=== PATIENT | male | born 1980 | race Caucasian/White ===

== ENCOUNTER 2018-01-06 09:38 | Emergency (ER) | payer MEDICAID, SELFPAY ==
[2018-01-06 09:39] VITALS: BP 153/79; PULSE 66; RESP 18; TEMP 36.6; O2SAT 98; BMI 37.3
--- NOTE | 2018-01-06 09:51 | ED.VISSUMM ---
- ER Visit Summary Date of Service: 01/06/18 Chief Complaint: Dental pain History of Present Illness: The patient is a 37 M presents to the emergency department dental pain. Patient states that he has not seen a dentist in over a year. He states over the past 24 hours, his increasing pain in his right upper jaw. He states it hurts to chew. He also admits to hot and cold sensitivity. He denies any fevers or chills. He denies any change in voice. He denies any trouble speaking or swallowing. He states he does have an appointment, but until Wednesday. Physical Examination: Exam is relatively unremarkable. Patient does have widespread dental caries. His submental space is soft. There is no trismus or stridor. He does have significant cavity of tooth 2 and 3 with market tenderness to palpation. There is no definitive abscess. Rest of exam is unremarkable per Test Results: [] Emergency Department Course and Treatment: The patient likely has periapical abscess. He has no trismus or stridor. His oropharynx is widely patent. There is no facial edema. I am going to treat him with penicillin and Naprosyn. He was counseled on concerning symptoms and reasons to return. The patient will be discharged home. Treatment Plan: [] Disposition: Discharge Impression: 1. Dental pain secondary to periapical abscessed tooth 2 This note was generated with [employer] dictation software. It may contain incorrect words, spelling, and punctuation that were not noted in review of the chart prior to signing ED Disposition - Plan for ED Patient: Chief Complaint: Dental Instructions: ED Abscess Dental Prescriptions: Naproxen [Naprosyn] 500 mg PO BID PRN #20 tab Penicillin V Potassium 500 mg PO 4X/DAY #40 tab Referrals: Kirit Reyes MD [Primary Care Provider] -
== END 2018-01-06 10:40 | disposition home or self-care (01) ==
LOC: ED 10:10
PROVIDERS: Emergency Provider Emergency Medicine; Family Provider Family Medicine; PCP Family Medicine
DX: K04.7 Periapical abscess without sinus (principal); Z72.0 Tobacco use
CPT/HCPCS: 99282

== ENCOUNTER 2022-07-29 09:28 | Emergency (ER) | payer MEDICAID, SELFPAY ==
[2022-07-29 09:29] VITALS: BP 138/78; PULSE 64; RESP 18; TEMP 35.8; O2SAT 98; BMI 41.5
--- NOTE | 2022-07-29 09:36 | EX.ED.UPPERE ---
HPI History of Present Illness Chief Complaint: Upper Extremity Injury Narrative Narrative: Patient presents with right wrist pain that started today. He does use his wrist quite a bit at work. He has no other injury. PFSH PFSH Medical History no medical history Home Medications Keppra PO TID 01/27/17 [History Last Taken Unknown] naproxen 500 mg tablet 500 mg PO BID PRN #20 tabs 01/06/18 [Rx Last Taken Unknown] penicillin V potassium 500 mg tablet 500 mg PO 4X/DAY #40 tabs 01/06/18 [Rx Last Taken Unknown] naproxen 500 mg tablet (Naprosyn) 500 mg PO BID PRN pain #20 tabs 07/29/22 [Rx Last Taken Unknown] Allergy/AdvReac Type Severity Reaction Status Date / Time No Known Allergies Allergy Verified 07/29/22 09:28 Social History Smoking Status: Current every day smoker tobacco type: cigarettes ROS ROS ED ROS Narrative Past medical history: History of seizures noncompliant with meds Medications: Reviewed Social history: Noncontributory Review of systems: Musculoskeletal: Wrist pain as in HPI Skin: No abrasions or lacerations Neurological: No weakness or paresthesias Hematologic: No easy bleeding or easy bruising EXAM Physical Exam Narrative Exam Narrative: Physical exam General: Patient does not appear in significant distress . Head: Normocephalic, Atraumatic Neck: No C-spine tenderness Cardiovascular: Normal distal pulses Back: Nontender, Normal Inspection. Extremities: Patient has generalized wrist pain, there is no erythema or calor, it is worse with flexion and extension no specific snuffbox tenderness. Normal strength and sensation. Skin: No abrasions, no lacerations Neurological: Normal strength and sensation Const Vital Signs: 07/29/22 09:29 Temperature 96.5 F L Temperature Source Temporal Pulse Rate 64 Respiratory Rate 18 Blood Pressure 138/78 H Blood Pressure Mean 98 Pulse Ox 98 Oxygen Delivery Method Room Air MDM MDM MDM Narrative Medical decision making narrative: Wrist x-ray read by me as normal. I talked the patient about his wrist she likely has tendinitis from overuse at work. I will give him a splint anti-inflammatories he is told to rest. I thought about possible infection however patient has no erythema or calor no obvious effusion. I thought about gout however patient has no history of gout and the wrist would be atypical presentation for first episode of gout. Discharge Plan Triage Chief Complaint: Upper Extremity Injury ED Provider: Gilbert Humphrey Dx/Rx/DC Orders Clinical Impression: Acute wrist pain, Tendinitis Instructions: ED Tendonitis Prescriptions: New naproxen [Naprosyn] 500 mg tablet 500 mg PO BID PRN (Reason: pain) Qty: 20 0RF No Action Keppra PO TID penicillin V potassium 500 MG tablet 500 mg PO 4X/DAY Qty: 40 0RF naproxen 500 MG tablet 500 mg PO BID PRN Qty: 20 0RF Primary Care Provider: Kirit Reyes Referrals: Kirit Reyes MD [Primary Care Provider] - 3-5 Days Disposition Disposition: Home, Self Care
--- NOTE | 2022-07-29 09:52 | RAD_ITS ---
STUDY: X-RAY - RIGHT WRIST REASON FOR EXAM: Male, 42 years old. Nontraumatic wrist pain. TECHNIQUE: 3 view(s) of the wrist were obtained. COMPARISON: None. FINDINGS: Normal visualized distal radius and ulna. Normal radiocarpal articulation. Normal distal radioulnar articulation. Normal carpal bones. Normal carpal articulations. Normal carpometacarpal articulation of the thumb. Normal second through fifth carpometacarpal articulations. Normal visualized metacarpal bones. The soft tissue structures are unremarkable. RAD/Wrist min 3 Views IMPRESSION: Normal x-ray examination of the wrist. Electronically Signed: Cristiano Villanueva MD at 10:10 EDT ,
== END 2022-07-29 10:37 | disposition home or self-care (01) ==
LOC: ED 10:08
PROVIDERS: Emergency Provider Emergency Medicine; Visit Provider Emergency Medicine
DX: M77.9 Enthesopathy, unspecified (principal); F17.210 Nicotine dependence, cigarettes, uncomplicated; M10.9 Gout, unspecified
CPT/HCPCS: 73110; 99283

== ENCOUNTER 2023-02-10 14:29 | Emergency (ER) | payer MEDICAID, SELFPAY ==
[2023-02-10 14:30] VITALS: BP 152/104; PULSE 72; RESP 16; TEMP 36.4; O2SAT 95; BMI 40.7
--- NOTE | 2023-02-10 14:40 | EKG12_ITS ---
Test Reason : Blood Pressure : / mmHG Vent. Rate : 075 BPM Atrial Rate : 075 BPM P-R Int : 182 ms QRS Dur : 096 ms QT Int : 386 ms P-R-T Axes : 027 029 055 degrees QTc Int : 431 ms Normal sinus rhythm Normal ECG Confirmed by ELEN LOPEZ, EULOGIO ([id number]), editor index YARED WILL ([id number]) on 02/22/2023 8:01:52 AM Referred By: Confirmed By:LATHA MYRICK MD
--- NOTE | 2023-02-10 14:40 | CT_ITS ---
STUDY: CT BRAIN WITHOUT CONTRAST REASON FOR EXAM: Male, 42 years old. Syncope RADIATION DOSAGE (If Supplied By Facility): CTDIvol = ( 44.99 ) mGy, DLP = ( 849.54 ) mGycm TECHNIQUE: Transaxial CT imaging of the brain was performed without administration of intravenous contrast material. Individualized dose optimization techniques were used for this CT. COMPARISON: No relevant priors. FINDINGS: Normal soft tissue structures. Normal calvarium. Normal size ventricles and extra-axial spaces for the patient''s age. Normal white matter tracts of the cerebral hemispheres. Normal basal ganglia and thalami. Normal brainstem. Normal cerebellum. There is no intracranial hemorrhage. There are no findings of an acute ischemic infarction. Partial opacification of the right maxillary sinus. CT/Brain/Head without Contrast IMPRESSION: Normal unenhanced CT scan of the brain. Partial opacification of the right maxillary sinus. Electronically Signed: Cristiano Villanueva MD at 15:39 EDT ,
--- NOTE | 2023-02-10 14:43 | EX.ED.DYSGE1 ---
HPI <RUSSEL Forman - Last Filed: 02/10/23 17:53> History of Present Illness Chief Complaint: Dizziness Narrative Narrative: 42-year-old male states he woke up at 2:45 AM to go to work at [employer]. He smoked weed prior to his shift which she does every day. He felt lightheaded there and apparently this afternoon a customer found him passed out in his vehicle and called EMS. Patient does not recall what happened. He denies any other drug use. He said no chest pain, shortness of breath, nausea vomiting, or recent illness. He states he does not see a doctor or take any prescription medications. PFSH <RUSSEL Forman Last Filed: 02/10/23 17:53> [facility] Home Medications Keppra PO TID 01/27/17 [History Last Taken Unknown] naproxen 500 mg tablet 500 mg PO BID PRN #20 tabs 01/06/18 [Rx Last Taken Unknown] penicillin V potassium 500 mg tablet 500 mg PO 4X/DAY #40 tabs 01/06/18 [Rx Last Taken Unknown] naproxen 500 mg tablet (Naprosyn) 500 mg PO BID PRN pain #20 tabs 07/29/22 [Rx Last Taken Unknown] Allergy/AdvReac Type Severity Reaction Status Date / Time No Known Allergies Allergy Verified 02/10/23 14:33 Social History Smoking Status: Current every day smoker tobacco type: cigarettes ROS <RUSSEL Forman Last Filed: 02/10/23 17:53> ROS ED ROS Narrative Constitutional: Negative for fever, chills, malaise. Eyes: Negative for visual change. CVS: Negative for palpitations, chest pain. Respiratory: Negative for shortness of breath, cough. GI: Negative for abdominal pain, nausea, vomiting, diarrhea, melena, hematochezia. : Negative for dysuria. Neuro: Negative for headache, motor/sensory dysfunction. EXAM <RUSSEL Forman Last Filed: 02/10/23 17:53> Physical Exam Narrative Exam Narrative: CONST: Patient sitting in no acute distress. EYES: Normal inspection. ENT: Normal inspection, moist mucous membranes. NECK: Normal inspection. RESP: No respiratory distress, CTAB. CVS: Regular rate and rhythm, no murmur, no gallop. ABD: Soft and nontender, no guarding or rebound, nondistended. SKIN: Color normal, no rash, warm, dry, intact. EXTREMITIES: Normal appearance, no pedal edema. NEURO: Oriented x4. PSYCH: Normal affect. Const Vital Signs: 02/10/23 14:30 02/10/23 18:03 Temperature 97.6 F L Temperature Source Temporal Pulse Rate 72 Respiratory Rate 16 Respiratory Effort Normal Non-Labored Blood Pressure 152/104 H Blood Pressure Mean 120 Pulse Ox 95 Oxygen Delivery Method Room Air <Dr. Jose Medeors DO - Last Filed: 02/10/23 18:46> Physical Exam Const Vital Signs: 02/10/23 14:30 02/10/23 18:03 Temperature 97.6 F L Temperature Source Temporal Pulse Rate 72 Respiratory Rate 16 Respiratory Effort Normal Non-Labored Blood Pressure 152/104 H Blood Pressure Mean 120 Pulse Ox 95 Oxygen Delivery Method Room Air MDM <Felisa Murcia PA - Last Filed: 02/10/23 17:53> [facility] Narrative Medical decision making narrative: History gathered from: Patient and family Patient was found passed out in his vehicle or brought in by EMS. He does not recall the surrounding events. He has remote history of seizures and has not been on Keppra for years. He is AO x4 but slow to answer questions. No neurological deficits. No tongue bite or incontinence. Initially I ordered labs and a CT brain scan. When the attending went in the room for reevaluation the patient had a seizure was ordered Ativan 2 mg IM and a loading dose of Keppra 20 mg/kilograms. CBC shows leukocytosis of 16.0, otherwise normal. Glucose is 279 with normal CO2 and anion gap. Normal electrolytes and renal function. EKG is nonischemic and troponin is 9. CT brain and CXR showed no acute process. Patient's family arrived and provided history. He stopped taking Keppra years ago. And has 2-3 spells a week where he stares into space and lifts his arm over his head. Is unclear why he did not continue Keppra but he currently has no doctor or specialists. Several episodes today was a increase in frequency of his seizures. When I evaluated him about 5 PM he was sleeping but when awakened became very agitated/combative and was upset he could not walk across the hallway to use the bathroom. Several nurses assisted me and we offered a urinal but he refused. He pulled all of his cords out from the wall and was not being rational. He was given additional IV Ativan 2 mg and placed in restraints for safety of his person and staff. Since patient is not returning to baseline and has had multiple seizures in one day he will require transfer to a facility with inpatient neurology coverage. Case was discussed with the emergency attending who accepted the patient, Dr. Moya. 25 minutes of critical care time were used in assessment of the patient, treatment and planning, discussion with family, discussion with consultants for transfer Lab Data Attestation: I reviewed the patient's lab results. Labs: Laboratory Results - last 24 hr 02/10/23 15:05 WBC 16.0 H RBC 5.42 Hgb 16.8 H Hct 52.0 MCV 95.9 H MCH 31.0 MCHC 32.3 RDW Std Deviation 43.6 RDW Coeff of Yohana 12.3 Plt Count 264 MPV 10.7 Immature Gran % (Auto) 0.600 Neut % (Auto) 86.9 H Lymph % (Auto) 8.9 L Rabun % (Auto) 2.9 Eos % (Auto) 0.3 Baso % (Auto) 0.4 Absolute Neuts (auto) 13.9 H Absolute Lymphs (auto) 1.42 Nucleated RBC % 0 Sodium 135 L Potassium 3.6 Chloride 95 L Carbon Dioxide 32.0 Anion Gap 8 BUN 6 L Creatinine 0.89 Estim Creat Clear Calc 121.10 Est GFR (MDRD) Af Amer 121 Est GFR (MDRD) Non-Af 100 BUN/Creatinine Ratio 6.7 L Glucose 279 H Calcium 8.9 Troponin I High Sens 9 Radiography Diagnostic Testing: Clinical Impression(s) from Imaging Studies Brain CT 02/10/23 14:40 IMPRESSION: Normal unenhanced CT scan of the brain. Partial opacification of the right maxillary sinus. Electronically Signed: Cristiano Villanueva MD at 15:39 EDT , Chest X-Ray 02/10/23 15:05 IMPRESSION: No acute abnormality is seen. Right hilar lymph nodes. Electronically Signed: Cristiano Villanueva MD at 15:24 EDT , <Dr. Jose Mederos, DO - Last Filed: 02/10/23 18:46> [facility] MDM Narrative Medical decision making narrative: History gathered from: Patient and family Patient was found passed out in his vehicle or brought in by EMS. He does not recall the surrounding events. He has remote history of seizures and has not been on Keppra for years. He is AO x4 but slow to answer questions. No neurological deficits. No tongue bite or incontinence. Initially I ordered labs and a CT brain scan. When the attending went in the room for reevaluation the patient had a seizure was ordered Ativan 2 mg IM and a loading dose of Keppra 20 mg/kilograms. CBC shows leukocytosis of 16.0, otherwise normal. Glucose is 279 with normal CO2 and anion gap. Normal electrolytes and renal function. EKG is nonischemic and troponin is 9. CT brain and CXR showed no acute process. Patient's family arrived and provided history. He stopped taking Keppra years ago. And has 2-3 spells a week where he stares into space and lifts his arm over his head. Is unclear why he did not continue Keppra but he currently has no doctor or specialists. Several episodes today was a increase in frequency of his seizures. When I evaluated him about 5 PM he was sleeping but when awakened became very agitated/combative and was upset he could not walk across the hallway to use the bathroom. Several nurses assisted me and we offered a urinal but he refused. He pulled all of his cords out from the wall and was not being rational. He was given additional IV Ativan 2 mg and placed in restraints for safety of his person and staff. Since patient is not returning to baseline and has had multiple seizures in one day he will require transfer to a facility with inpatient neurology coverage. Case was discussed with the emergency attending who accepted the patient, Dr. Moya. 25 minutes of critical care time were used in assessment of the patient, treatment and planning, discussion with family, discussion with consultants for transfer This patient was seen with a PA/TRUCK CRANE OPERATOR HELPER Individually assessed they patient including history and physical. I have reviewed everything on the chart that is available and agree with the documentation provided by the PA/TRUCK CRANE OPERATOR HELPER including discussion about the assessment, treatment plan, discussion, and return precautions. Patient with history of seizures having recurrent seizures today and postictal states in which she becomes very agitated. Maintained seizure precautions. He had a loading dose of Keppra. He had to be restrained at 1 point because we were concerned for his safety. He was medically sedated with Ativan twice. He has not had any further seizure activity. CT brain and lab work unremarkable with exception of a white blood cell count of 16 which is likely reactive. Chest x-ray shows nothing acute. GMI interpretation shows a sinus rhythm at 75 bpm without sign ischemic change or ectopy. MN interval 182 ms, QRS duration 96 ms, QT [address] Moya at [facility] who accepted him in transfer. She recommended if he is agitated to give Haldol. Lab Data Labs: Laboratory Results - last 24 hr 02/10/23 15:05 WBC 16.0 H RBC 5.42 Hgb 16.8 H Hct 52.0 MCV 95.9 H MCH 31.0 MCHC 32.3 RDW Std Deviation 43.6 RDW Coeff of Yohana 12.3 Plt Count 264 MPV 10.7 Immature Gran % (Auto) 0.600 Neut % (Auto) 86.9 H Lymph % (Auto) 8.9 L Rabun % (Auto) 2.9 Eos % (Auto) 0.3 Baso % (Auto) 0.4 Absolute Neuts (auto) 13.9 H Absolute Lymphs (auto) 1.42 Nucleated RBC % 0 Sodium 135 L Potassium 3.6 Chloride 95 L Carbon Dioxide 32.0 Anion Gap 8 BUN 6 L Creatinine 0.89 Estim Creat Clear Calc 121.10 Est GFR (MDRD) Af Amer 121 Est GFR (MDRD) Non-Af 100 BUN/Creatinine Ratio 6.7 L Glucose 279 H Calcium 8.9 Troponin I High Sens 9 Radiography Diagnostic Testing: Clinical Impression(s) from Imaging Studies Brain CT 02/10/23 14:40 IMPRESSION: Normal unenhanced CT scan of the brain. Partial opacification of the right maxillary sinus. Electronically Signed: Cristiano Villanueva MD at 15:39 EDT , Chest X-Ray 02/10/23 15:05 IMPRESSION: No acute abnormality is seen. Right hilar lymph nodes. Electronically Signed: Cristiano Villanueva MD at 15:24 EDT , Discharge Plan Triage Chief Complaint: Dizziness ED Midlevel Provider: Felisa Murcia ED Provider: Jose Mederos Dx/Rx/DC Orders Clinical Impression: Acute alteration in mental status, Seizures Prescriptions: No Action Keppra PO TID penicillin V potassium 500 MG tablet 500 mg PO 4X/DAY Qty: 40 0RF naproxen 500 MG tablet 500 mg PO BID PRN Qty: 20 0RF naproxen [Naprosyn] 500 mg tablet 500 mg PO BID PRN (Reason: pain) Qty: 20 0RF Primary Care Provider: Care Physician,No Primary Referrals: Care Physician,No Primary [Primary Care Provider] -
[2023-02-10] MEDS: LORazepam 2 MG/ML Syringe IM (14:58)
[2023-02-10] MEDS: 0.9% Normal Saline (1000mL) 1,000 ML 999 ML IV (15:01)
--- NOTE | 2023-02-10 15:05 | RAD_ITS ---
STUDY: X-RAY CHEST REASON FOR EXAM: Male, 42 years old. Syncope TECHNIQUE: Single AP portable view of the chest. COMPARISON: Comparison is made with prior study dated April 19, 2012. FINDINGS: EKG electrodes are seen. The lungs are clear and expanded. There is no demonstrated pleural abnormality. Normal size heart. Calcified right hilar lymph nodes. Normal visualized pulmonary arteries. Normal visualized aortic arch and descending thoracic aorta. Normal visualized thoracic spine. Normal visualized ribs, clavicles, and shoulders. There is no demonstrated abnormality of the visualized soft tissue structures of the upper abdomen. RAD/Chest 1 View (Portable) IMPRESSION: No acute abnormality is seen. Right hilar lymph nodes. Electronically Signed: Cristiano Villanueva MD at 15:24 EDT ,
[2023-02-10 15:13] LABS: Absolute Lymphocyte Count 1.42 X10^3/uL (0.83-4.51); Absolute Neutrophil Count 13.9 X10^3/uL (2.0-7.7); Basophil# 0.07 X10^3/uL; Basophil% 0.4 % (0-1); Eosinophil# 0.05 X10^3/uL; Eosinophils% 0.3 % (0-5); Hemoglobin 16.8 g/dL (13.0-16.5); Lymphocyte # 1.42 X10^3/ul (0.83-4.51); Lymphocyte % 8.9 % (19-41); Mean Corp Hgb Conc 32.3 g/dL (32-36); Mean Corpuscular Volume 95.9 fL (80-94); Mean Platelet Vol. 10.7 fl (6.2-12.0); Monocyte# 0.46 X10^3/uL; Monocyte% 2.9 % (0-10); NRBC Flagged by Analyzer 0 % (0-5); Neutrophil # 13.89 X10^3/uL (2.7-7.7); Neutrophil % 86.9 % (47-70); Platelet Count 264 K/mm3 (150-450); RBC Distribution Width CV 12.3 % (11.6-14.6); RBC Distribution Width SD 43.6 fl (35.1-43.9); Red Blood Count 5.42 M/mm3 (4.6-6.2)
[2023-02-10 15:29] LABS: Anion Gap 8 (5-15); BUN 6 mg/dL (7-18); BUN/Creat Ratio 6.7 RATIO (10-20); Calcium,Total 8.9 mg/dL (8.5-10.1); Chloride 95 mmol/L (98-107); Creatinine, Serum 0.89 mg/dL (0.70-1.30); EST Glomerular Filtration Rate 100 mL/min (>60); Est Glom Filt Rate - Afr Amer 121 mL/min (>60); Glucose 279 mg/dL (74-106); Potassium 3.6 mmol/L (3.5-5.1); Sodium Level 135 mmol/L (136-145); Troponin-I HS 9 pg/mL (3.0-78.0)
[2023-02-10] MEDS: NORMAL SALINE 0.9% IV (15:33)
[2023-02-10] MEDS: LEVETIRACETAM IV (15:33)
--- NOTE | 2023-02-10 17:03 | ED.RN ---
Pt swinging at staff, threatening harm and attempting to climb out of bed. Attempted to redirect numerous times. Dr. Mederos notified. Pt son at bedside yelling at staff. PD called.
[2023-02-10] MEDS: LORazepam 2 MG/ML Syringe IV (17:19)
--- NOTE | 2023-02-10 17:25 | NURSING ---
1711 CALLED LEYLA, PUT ON WAIT LIST
--- NOTE | 2023-02-10 17:25 | NURSING ---
1717 CALLED RAMEZ , SHE TOOK INFO
--- NOTE | 2023-02-10 18:00 | CM.ED ---
Social Work Reason for consult: No PCP, off of seizure medication for years Referral source: [facility]O Cam[facility] Update received from HRO Camilo regarding this patient's medical history, being off of medications and driving with a reported seizure disorder. HRO reports to have spoken with patient and family about safety concerns, risk to self and others, and the importance of patient taking care of medical needs. This mortgage or loan underwriter presented to the patient's room to discuss concerns, offer resources and assess for needs. Upon arriving to the room found multiple staff present, along with patient's Ava and son Haim. Observed patient having difficulty following direction from staff, and appearing to be belligerent. This mortgage or loan underwriter observed the in the room, yelling at the patient to listen, with the son telling this mortgage or loan underwriter outside of the room that patient's spells happen when under stress and that patient and patient's are right now. Then observed to come out of room, calm, and then son to room and yelling at patient to listen. reports patient has spells frequently. This mortgage or loan underwriter provided with a list of PCPs from patient's geographical region, pulled of of [facility] website. Reinforced that when patient is more oriented, and ready to discharge back to the community, setting up a PCP would be of great benefit to the patient. During this time, patient continued to have a hard time following direction, and staff took measures for safety for all. Haim became verbally belligerent in hallway, cussing, and expressing anger about patient having to be placed in restraints. This mortgage or loan underwriter attempted to explore what types of things help the patient when patient has spells to which Haim reported the patient likes to walk around. Educated that hospitals have seizure precautions, and when someone seems to be having active seizures then walking around could pose even more safety concerns. Attempted to validate son's feelings, and assure that staff are trying to help. HRO and additional W[employer] continued to speak with patient while this mortgage or loan underwriter then attended to the patient's who went back into the room. This mortgage or loan underwriter noted the yelling at the patient, and telling the patient what to do, stating do you understand? to which the patient said he did. This mortgage or loan underwriter suggested patient be asked to repeat back directions given, to show the patient's level of understanding. Patient could not repeat back anything the said; could not show understanding. Took opportunity to reinforce to that patient is not making rational decisions right now, confused, and that yelling by family is actually creating more of a stimulus to patient's brain. accepted redirection and calmed own voice. Another son Jorge to ED and indicated plan to take Haim home until Ava called with an update on how patient was doing. Jorge calm. Once patient was calmed and resting, Ava left unit to go outside for a little bit. No other needs requested. Educated Ava that a social sciences department chair or welfare case worker jake be available at tertiary care center, to help with discharge planning and referral to resources. No other services requested or indicated. -JONA Glover
[2023-02-10 18:30] VITALS: BP 165/99; PULSE 98; RESP 15; O2SAT 100
[2023-02-10 20:23] VITALS: BP 138/80; PULSE 109; RESP 18; O2SAT 93
[2023-02-10 21:46] VITALS: BP 138/80; PULSE 98; RESP 18; TEMP 36.4; O2SAT 93
[2023-02-10 22:37] VITALS: BP 162/99; PULSE 100; RESP 15; O2SAT 93
== END 2023-02-10 23:00 | disposition short-term general hospital (02) ==
PROVIDERS: Physician Assistant; Emergency Provider Student in an Organized Health Care Education/Training Program; Visit Provider Student in an Organized Health Care Education/Training Program
DX: R56.9 Unspecified convulsions (principal); F17.210 Nicotine dependence, cigarettes, uncomplicated; R42 Dizziness and giddiness; R41.82 Altered mental status, unspecified; R55 Syncope and collapse
CPT/HCPCS: 70450; 71045; 80048; 84484; 85025; 93005; 96365; 96366; 96375; 99285; J7030; J7050; A4216